=== PATIENT | male | born 1940 | race Caucasian/White ===

== ENCOUNTER 2017-03-01 19:47 | Emergency (ER) | payer MEDICARE ==
[2017-03-01] MEDS ORDERED: NS 0.9% 1000 ML* 1,000 ML IV ONE (21:49)
[2017-03-01] MEDS ORDERED: ceFAZolin VIAL(*) 1 GM in NS 0.9% 50 ML* 50 ML IVPB ONE (21:49)
[2017-03-01 22:08] LABS: Hematocrit 36 % (42-52); Hemoglobin 11.8 g/dl (14.0-18.0); Mean Corpuscular HGB Conc 33 g/dl (31-36); Mean Corpuscular Hemoglobin 26 pg (27-31); Mean Corpuscular Volume 80 fL (80-94); Mean Platelet Volume 8 um3 (7.4-10.4); Red Blood Count 4.47 10^6/ul (4.0-5.4); Red Cell Distribution Width 14 % (10.5-15); White Blood Count 5.4 10^3/ul (3.5-10.8)
[2017-03-01 22:20] LABS: Albumin 3.7 g/dL (3.2-5.2); C Reactive Protein 155.78 mg/L (< 5.00); Calcium 9.4 mg/dL (8.6-10.3); EGFR African American 121.5 (>60); EGFR Non-African American 94.5 (>60); Globulin 3.5 g/dL (2-4); Potassium 4.9 mmol/L (3.5-5.0); Total Bilirubin 0.6 mg/dL (0.2-1.0); Total Protein 7.2 g/dL (6.4-8.9)
[2017-03-01] MEDS ORDERED: Cephalexin CAP* 500 MG PO ONE (23:00)
--- NOTE | 2017-03-01 23:03 | ED ---
Amandeep Epstein Alok, scribed for Adia Casas MD on 03/01/17 at 2204 . Lower Extremity - HPI Summary HPI Summary: 76M presents to the ED with right lower extremity edema with erythema since 2 weeks ago. Pt states that the swelling has improved somewhat since arrival to ED and elevation of leg. Pt denies fever. PMHx includes DM and pancreatic CA. Pt last had chemotherapy 3 days ago and has port in. Pt drinks ETOH occasionally. - History of Current Complaint Chief Complaint: EDGeneral Stated Complaint: RIGHT FOOT COMPLAINT Time Seen by Provider: 03/01/17 21:17 Hx Obtained From: Patient Onset/Duration: Weeks Severity Initially: Moderate Severity Currently: Moderate Pain Intensity: 3 Pain Scale Used: 0-10 Numeric Timing: Constant, Lasting Weeks Location: Is Discrete @ - right ankle Associated Signs And Symptoms: Positive: Swelling, Redness. Negative: Fever Aggravating Factor(s): Nothing Alleviating Factor(s): Elevation - Allergies/Home Medications Allergies/Adverse Reactions: Allergies Allergy/AdvReac Type Severity Reaction Status Date / Time No Known Allergies Allergy Verified 03/01/17 19:55 PMH/Surg Hx/FS Hx/Imm Hx Endocrine/Hematology History: Reports: Hx Diabetes - NIDDM TYPE 2 Cardiovascular History: Reports: Other Cardiovascular Problems/Disorders - high cholesterol, controlled with medication Denies: Hx Hypertension GI History: Reports: Hx Gastroesophageal Reflux Disease - controlled with medication, Other GI Disorders - diverticulosis, but not symptomatic, eats seeds and kernals. History: Reports: Other Problems/Disorders - BPH, Inguinal Hernia Denies: Hx Renal Disease Sensory History: Reports: Hx Contacts or Glasses - reading Denies: Hx Cataracts, Hx Glaucoma, Hx Hearing Aid Opthamlomology History: Reports: Hx Contacts or Glasses - reading Denies: Hx Cataracts, Hx Glaucoma - Surgical History Surgery Procedure, Year, and Place: UMBILICAL HERNIA WITH REVISION Hx Anesthesia Reactions: No Infectious Disease History: No Infectious Disease History: Denies: Traveled Outside the [place] in Last 30 Days - Family History Known Family History: Positive: Other - No - Malignant hypothermia - Social History Occupation: Retired Lives: Alone Alcohol Use: Occasionally Alcohol Amount: 3-4/wk Substance Use Type: Reports: None Smoking Status (MU): Former Smoker Type: Cigarettes Amount Used/How Often: smoked on/off for 30 yrs, 3/4 ppd Review of Systems Negative: Fever Positive: Edema All Other Systems Reviewed And Are Negative: Yes Physical Exam Triage Information Reviewed: Yes Vital Signs On Initial Exam: Initial Vitals Temp Pulse Resp BP Pulse Ox 98.2 F 80 18 139/75 100 03/01/17 19:56 03/01/17 19:56 03/01/17 19:56 03/01/17 19:56 03/01/17 19:56 Vital Signs Reviewed: Yes Appearance: Positive: Well-Appearing, No Pain Distress Skin: Positive: Warm, Skin Color Reflects Adequate Perfusion, Dry, Other - erythema with swelling mostly on the medial portion of the right ankle going partially up the leg Eyes: Positive: EOMI, MEDINA ENT: Positive: Pharynx normal, TMs normal Neck: Positive: Supple, Nontender Respiratory/Lung Sounds: Positive: Clear to Auscultation, Breath Sounds Present. Negative: Rales, Rhonchi, Wheezes Cardiovascular: Positive: RRR, Other - no gallop. Negative: Murmur, Rub Abdomen Description: Positive: Nontender, Soft, Other: - no rebound. Negative: Distended, Guarding Bowel Sounds: Positive: Present Musculoskeletal: Positive: Edema Right - Mostly on the medial portion of the right ankle going partially up the leg Neurological: Positive: Sensory/Motor Intact, Alert, Oriented to Person Place, Time, CN Intact II-III Psychiatric: Positive: Affect/Mood Appropriate Diagnostics - Vital Signs Vital Signs Temp Pulse Resp BP Pulse Ox 03/01/17 19:56 98.2 F 80 18 139/75 100 - Laboratory Lab Results: Lab Results 03/01/17 03/01/17 03/01/17 Range/Units 21:52 21:52 21:52 WBC 5.4 (3.5-10.8) 10^3/ul RBC 4.47 (4.0-5.4) 10^6/ul Hgb 11.8 L (14.0-18.0) g/dl Hct 36 L (42-52) % MCV 80 (80-94) fL MCH 26 L (27-31) pg MCHC 33 (31-36) g/dl RDW 14 (10.5-15) % Plt Count 225 (150-450) 10^3/ul MPV 8 (7.4-10.4) um3 Neut % (Auto) 76.0 (38-83) % Lymph % (Auto) 17.1 L (25-47) % [place] % (Auto) 1.1 (1-9) % Eos % (Auto) 5.2 (0-6) % Baso % (Auto) 0.6 (0-2) % Absolute Neuts (auto) 4.1 (1.5-7.7) 10^3/ul Absolute Lymphs (auto) 0.9 L (1.0-4.8) 10^3/ul Absolute Monos (auto) 0.1 (0-0.8) 10^3/ul Absolute Eos (auto) 0.3 (0-0.6) 10^3/ul Absolute Basos (auto) 0 (0-0.2) 10^3/ul Absolute Nucleated RBC 0.01 10^3/ul Nucleated RBC % 0.1 Sodium 128 L (133-145) mmol/L Potassium 4.9 (3.5-5.0) mmol/L Chloride 94 L (101-111) mmol/L Carbon Dioxide 28 (22-32) mmol/L Anion Gap 6 (2-11) mmol/L BUN 16 (6-24) mg/dL Creatinine 0.80 (0.67-1.17) mg/dL Est GFR ( Amer) 121.5 (>60) Est GFR (Non-Af Amer) 94.5 (>60) BUN/Creatinine Ratio 20.0 (8-20) Glucose 362 H (70-100) mg/dL Lactic Acid 1.1 (0.5-2.0) mmol/L Calcium 9.4 (8.6-10.3) mg/dL Total Bilirubin 0.60 (0.2-1.0) mg/dL AST 60 H (13-39) U/L ALT 136 H (7-52) U/L Alkaline Phosphatase 136 H (34-104) U/L C-Reactive Protein 155.78 H (< 5.00) mg/L Total Protein 7.2 (6.4-8.9) g/dL Albumin 3.7 (3.2-5.2) g/dL Globulin 3.5 (2-4) g/dL Albumin/Globulin Ratio 1.1 (1-3) Result Diagrams: 03/01/17 21:52 03/01/17 21:52 Lab Statement: Any lab studies that have been ordered have been reviewed, and results considered in the medical decision making process. Lower Extremity Course/Dx - Course Course Of Treatment: 76 yo male with diabetes and pancreatic cancer with new cellulitis left ankle (no hardware), labs done pt is not neutropenic and he wants to try it at home. Given one dose of ancef here and sent with keflex, close f/u with Dr. Zuluaga he knows he may need to admitted if he doesn't improve - Diagnoses Provider Diagnoses: Cellulitis Discharge - Discharge Plan Condition: Stable Disposition: HOME Prescriptions: Cephalexin CAP* [Keflex CAP*] 500 mg PO QID #28 cap The documentation as recorded by the Amandeep gruber Alok accurately reflects the service I personally performed and the decisions made by me, Adia Casas MD.
[2017-03-01 23:19] VITALS: BP 133/73
== END 2017-03-01 23:18 | disposition home or self-care (01) ==
LOC: ED 19:47
DX: L03.116 Cellulitis of left lower limb (principal); E11.9 Type 2 diabetes mellitus without complications; C25.9 Malignant neoplasm of pancreas, unspecified; E78.5 Hyperlipidemia, unspecified; K21.9 Gastro-esophageal reflux disease without esophagitis; N40.0 Benign prostatic hyperplasia without lower urinary tract symptoms; Z87.891 Personal history of nicotine dependence
CPT/HCPCS: 36415; 80053; 83605; 85025; 86140; 87040; 96365; 99283; A9270-GY; J0690